=== PATIENT | female | born 1935 | race Caucasian/White ===

== ENCOUNTER 2016-06-07 19:01 | Emergency (ER) | payer MEDICARE ==
[2016-06-07 19:20] VITALS: BP 130/84; TEMP 101.3; O2SAT 95
[2016-06-07] MEDS ORDERED: OSELTAMIVIR 75 MG CAP PO ONE ×2 (20:12→21:29)
--- NOTE | 2016-06-07 20:34 | ED.PDOC ---
History of Present Illness - General Chief Complaint: Fever Stated Complaint: fever, cough congestion Time Seen by Provider: 06/07/16 20:27 Source: patient, RN notes reviewed, Vital Signs reviewed Exam Limitations: no limitations - History of Present Illness Initial Comments: Stated body aches since yesterday then fever this morning ststed that he had flu shot in March 2016;just finished levaquin yesterday for bronchitis Timing/Duration: 24 hours Severity: moderate Improving Factors: nothing Worsening Factors: nothing Associated Symptoms: cough Allergies/Adverse Reactions: Allergies Azithromycin Allergy (Severe, Verified 01/13/15 11:59) Hives Doxycycline Allergy (Severe, Verified 01/13/15 11:59) Hives Sulfa Antibiotics Allergy (Severe, Verified 01/13/15 11:59) Hives Home Medications: Ambulatory Orders ALPRAZolam [Xanax] 0.5 mg PO ACHS 01/13/15 Atorvastatin Calcium [Lipitor] 20 mg PO DAILY 01/13/15 Cetirizine HCl [Zyrtec Allergy] 10 mg PO DAILY 01/13/15 Gabapentin [Neurontin] 100 mg PO PRN PRN 01/13/15 Omeprazole [Prilosec] 10 mg PO DAILY 01/13/15 Sertraline HCl [Zoloft] 50 mg PO DAILY 01/13/15 diphenhydrAMINE HCL [Benadryl] 25 mg PO PRN PRN 01/13/15 predniSONE [Prednisone] 40 mg PO DAILY #10 tab 01/13/15 Acetaminophen W/ Codeine [Tylenol w/Codeine 300-30 mg] 1 tab PO TID PRN #14 tab 06/07/16 Dextromethorphan-Guaifenesin [Mucinex Dm 30-600 mg] 1 tab PO BID #30 tab Oseltamivir Phosphate [Tamiflu] 75 mg PO BID #10 cap 06/07/16 Review of Systems - Review of Systems Constitutional: States: fever EENTM: States: no symptoms reported Respiratory: States: cough - non productive Cardiology: States: no symptoms reported Gastrointestinal/Abdominal: States: no symptoms reported Genitourinary: States: no symptoms reported Musculoskeletal: States: no symptoms reported Skin: States: no symptoms reported Neurological: States: no symptoms reported Endocrine: States: no symptoms reported Hematologic/Lymphatic: States: no symptoms reported Past Medical History (General) - Patient Medical History Hx Asthma: No Hx Congestive Heart Failure: No Hx Hypertension: No Hx Gastroesophageal Reflux: Yes Hx Other - free text: hypercholesterolemia Surgical History: cholecystectomy, Hysterectomy Other Surgeries:: hysterectomy,both knees - Vaccination History Hx Tetanus, Diphtheria Vaccination: No Hx Influenza Vaccination: Yes Hx Pneumococcal Vaccination: Yes - Social History Hx Tobacco Use: No Family Medical History - Family History Mother Family History: No Known Hx Family Cancer: Yes - lung-dad Physical Exam - Physical Exam General Appearance: Alert, Comfortable, No apparent distress, Other - not acutely ill Eye Exam: bilateral normal Ears, Nose, Throat: hearing grossly normal, normal ENT inspection, normal pharynx Neck: non-tender, full range of motion, supple Respiratory: chest non-tender, lungs clear, normal breath sounds, no respiratory distress, no accessory muscle use Cardiovascular/Chest: regular rate, rhythm, no gallop, no murmur Gastrointestinal/Abdominal: normal bowel sounds, non tender, soft Back Exam: no CVA tenderness, no vertebral tenderness Extremity: normal range of motion, non-tender Neurologic: alert, normal mood/affect, oriented x 3 Skin Exam: normal color, warm/dry Progress - Progress Progress: 06/07/16 21:29 flu a positive Departure - Departure Clinical Impression: Influenza A Time of Disposition: 21:33 Disposition: Discharge to Home or Self Care Condition: Good Departure Forms: ED Discharge - Pt. Copy, Patient Portal Self Enrollment Instructions: Influenza Referrals: Moiz Negro MD [Primary Care Provider] - 1-2 Weeks Prescriptions: Dextromethorphan-Guaifenesin [Mucinex Dm 30-600 mg] 1 tab PO BID #30 tab Oseltamivir Phosphate [Tamiflu] 75 mg PO BID #10 cap Acetaminophen W/ Codeine [Tylenol w/Codeine 300-30 mg] 1 tab PO TID PRN #14 tab PRN Reason: Pain Home Medications: Ambulatory Orders ALPRAZolam [Xanax] 0.5 mg PO ACHS 01/13/15 Atorvastatin Calcium [Lipitor] 20 mg PO DAILY 01/13/15 Cetirizine HCl [Zyrtec Allergy] 10 mg PO DAILY 01/13/15 Gabapentin [Neurontin] 100 mg PO PRN PRN 01/13/15 Omeprazole [Prilosec] 10 mg PO DAILY 01/13/15 Sertraline HCl [Zoloft] 50 mg PO DAILY 01/13/15 diphenhydrAMINE HCL [Benadryl] 25 mg PO PRN PRN 01/13/15 predniSONE [Prednisone] 40 mg PO DAILY #10 tab 01/13/15 Acetaminophen W/ Codeine [Tylenol w/Codeine 300-30 mg] 1 tab PO TID PRN #14 tab 06/07/16 Dextromethorphan-Guaifenesin [Mucinex Dm 30-600 mg] 1 tab PO BID #30 tab Oseltamivir Phosphate [Tamiflu] 75 mg PO BID #10 cap 06/07/16 Additional Instructions: RETURN TO EMERGENCY ROOM NEEDED
[2016-06-07] MEDS ORDERED: HYDROcodone 5MG/APAP 325MG 1 EA TAB PO ONE (21:30)
== END 2016-06-07 22:00 | disposition home or self-care (01) ==
LOC: ER 19:01
DX: J10.1 Influenza due to other identified influenza virus with other respiratory manifestations (principal); Z88.2 Allergy status to sulfonamides; Z88.3 Allergy status to other anti-infective agents; Z79.899 Other long term (current) drug therapy; K21.9 Gastro-esophageal reflux disease without esophagitis; E78.00 Pure hypercholesterolemia, unspecified; Z80.1 Family history of malignant neoplasm of trachea, bronchus and lung

== ENCOUNTER → 2016-06-19 | Outpatient (CLI) | payer MEDICARE | END | disposition home or self-care (01) | LOC: GMAB 10:27 | PROVIDERS: ATTEND Family Medicine | DX: I10 Essential (primary) hypertension (principal) ==

== ENCOUNTER → 2016-08-27 | Outpatient (CLI) | payer MEDICARE | LOC: GMAB 17:36 | PROVIDERS: ATTEND Family Medicine | DX: R10.84 Generalized abdominal pain (principal) ==

== ENCOUNTER 2017-07-26 12:34 | Emergency (ER) | payer MEDICARE ==
[2017-07-26 12:52] VITALS: TEMP 97.6; O2SAT 95
--- NOTE | 2017-07-26 12:59 | ED.PDOC ---
History of Present Illness - General Chief Complaint: Trauma Stated Complaint: S/P Fall Time Seen by Provider: 07/26/17 12:55 Source: patient, family Exam Limitations: no limitations - History of Present Illness Initial Comments: Patient presents with neck pain, a right eye contusion, and right hand laceration after stumbling and falling off her back porch. She says that it was about 5 feet high. She denies LOC and says that she had no chest pain before she fell. She says she tripped over some items that were on the porch. Denies any N/V/paresthesias. No changes in vision or hearing. There is mild pain over the right maxilla and upper cervical vertebral spinous processes. She has pain on the right hand between the 1st and 2nd digits where there is a laceration. No hip pain. She also struck her knees but says that the just feel "sore" from the fall. No other complaints. Timing/Duration: 1/2 hour Severity: mild Improving Factors: nothing Worsening Factors: nothing Associated Symptoms: denies symptoms Allergies/Adverse Reactions: Allergies Azithromycin Allergy (Severe, Verified 01/13/15 11:59) Hives Doxycycline Allergy (Severe, Verified 01/13/15 11:59) Hives Sulfa Antibiotics Allergy (Severe, Verified 01/13/15 11:59) Hives Erythromycin Allergy (Verified 07/26/17 12:51) Tetracycline Allergy (Verified 07/26/17 12:51) Home Medications: Ambulatory Orders ALPRAZolam [Xanax] 0.5 mg PO ACHS 01/13/15 Atorvastatin Calcium [Lipitor] 20 mg PO DAILY 01/13/15 Cetirizine HCl [Zyrtec Allergy] 10 mg PO DAILY 01/13/15 Gabapentin [Neurontin] 100 mg PO PRN PRN 01/13/15 Omeprazole [Prilosec] 10 mg PO DAILY 01/13/15 Sertraline HCl [Zoloft] 50 mg PO DAILY 01/13/15 diphenhydrAMINE HCL [Benadryl] 25 mg PO PRN PRN 01/13/15 predniSONE [Prednisone] 40 mg PO DAILY #10 tab 01/13/15 Acetaminophen W/ Codeine [Tylenol w/Codeine 300-30 mg] 1 tab PO TID PRN #14 tab 06/07/16 Dextromethorphan-Guaifenesin [Mucinex Dm 30-600 mg] 1 tab PO BID #30 tab Oseltamivir Phosphate [Tamiflu] 75 mg PO BID #10 cap 06/07/16 Review of Systems - Review of Systems Constitutional: States: no symptoms reported EENTM: States: no symptoms reported Respiratory: States: no symptoms reported Cardiology: States: no symptoms reported Gastrointestinal/Abdominal: States: no symptoms reported Genitourinary: States: no symptoms reported Musculoskeletal: States: see HPI Skin: States: see HPI Neurological: States: no symptoms reported Endocrine: States: no symptoms reported Hematologic/Lymphatic: States: no symptoms reported Past Medical History (General) - Patient Medical History Hx Stroke: No Hx Asthma: No Hx Congestive Heart Failure: No Hx Hypertension: No Hx Diabetes: No Hx Gastroesophageal Reflux: Yes Surgical History: cholecystectomy, Hysterectomy - Vaccination History Hx Tetanus, Diphtheria Vaccination: No - UNKNOWN Hx Influenza Vaccination: Yes Hx Pneumococcal Vaccination: Yes - Social History Hx Tobacco Use: Yes - Female History Patient is a Female of Child Bearing Age (10 -59 yrs old): No Family Medical History - Family History Mother Family History: No Known Hx Family Cancer: Yes - lung-dad Physical Exam - Physical Exam General Appearance: Alert Eye Exam: bilateral normal Ears, Nose, Throat: normal ENT inspection Neck: non-tender, full range of motion, supple, tender midline - cervical spinous processes 4-7 are mildly TTP Respiratory: chest non-tender, lungs clear, normal breath sounds Cardiovascular/Chest: normal peripheral pulses, regular rate, rhythm, no edema Gastrointestinal/Abdominal: normal bowel sounds, non tender, soft Extremity: normal range of motion, non-tender, normal inspection, other - Right fingers 1-5 have 5/5 strength to flexion/extension/adduction/abduction. 5/5 strength to opposition and extension of the thumb. 5/5 strength to flexion/ extension of the right wrist. Full sensation throughout entire right hand and fingers. Capillary refill less than 2 second throughout entire right hand and nail beds. 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 small amount of bleeding. No extension into subcutanoous soft tissue, tendon, or muscle. Progress - Progress Progress: 07/26/17 14:09 CT head negative for hemorrhage. CT cervical spine negative for fractures. Laceration was prepped and draped in a sterile fashion. 4 cc lidocaine 1% without epinephrine was used to gain excellent local anesthesia. Wound was irrigated with 40 cc sterile NS. 9 interrupted sutures using 4-0 proline were placed to gain excellent wound edge approximation. Wound was cleaned, treated with topical antibiotic, and dressed. Area was clean, dry and hemostatic upon completion. Patient tolerate procedure well. Tetanus booster given. Care instructions given. Departure - Departure Clinical Impression: Laceration, Facial contusion, Neck sprain Disposition: Discharge to Home or Self Care Condition: Good Departure Forms: ED Discharge - Pt. Copy, Patient Portal Self Enrollment Instructions: DI for Trauma Diet: resume usual diet Activity: other - Restrict use of the right hand to writing only until sutures are removed. Referrals: Moiz Negro MD [Primary Care Provider] - 1-2 Weeks Home Medications: Ambulatory Orders ALPRAZolam [Xanax] 0.5 mg PO ACHS 01/13/15 Atorvastatin Calcium [Lipitor] 20 mg PO DAILY 01/13/15 Cetirizine HCl [Zyrtec Allergy] 10 mg PO DAILY 01/13/15 Gabapentin [Neurontin] 100 mg PO PRN PRN 01/13/15 Omeprazole [Prilosec] 10 mg PO DAILY 01/13/15 Sertraline HCl [Zoloft] 50 mg PO DAILY 01/13/15 diphenhydrAMINE HCL [Benadryl] 25 mg PO PRN PRN 01/13/15 predniSONE [Prednisone] 40 mg PO DAILY #10 tab 01/13/15 Acetaminophen W/ Codeine [Tylenol w/Codeine 300-30 mg] 1 tab PO TID PRN #14 tab 06/07/16 Dextromethorphan-Guaifenesin [Mucinex Dm 30-600 mg] 1 tab PO BID #30 tab Oseltamivir Phosphate [Tamiflu] 75 mg PO BID #10 cap 06/07/16 Additional Instructions: Keep wound clean. Apply topical antibiotic twice per day for the first three days. Restrict use of the right hand to writing only until sutures are removed. See your primary doctor in 10 days for suture removal. Return to the E.R. for increasing pain, redness, bleeding, pus or fever.
--- NOTE | 2017-07-26 13:25 | CT ---
EXAM DESCRIPTION: Cervical Spine CLINICAL HISTORY: 81 years Female, fall from 5 feet with neck pain COMPARISON: None. TECHNIQUE: Axial imaging. No IV contrast. Sagittal and coronal reconstruction FINDINGS: There is moderate multilevel spondylosis with facet arthrosis affecting all cervical segments. No fractures. No offset. There is normal facet alignment. Odontoid is noted to be intact. Is subtle vascular calcifications within the carotid arteries. IMPRESSION: Spondylosis. No fractures This exam was performed according to our departmental dose-optimization program, which includes automated exposure control, adjustment of the mA and/or kV according to patient size and/or use of iterative reconstruction technique. Electronically signed by: Jaiden Mcconnell 07/26/2017 1:24 PM CDT
--- NOTE | 2017-07-26 13:27 | CT ---
EXAM DESCRIPTION: Head CLINICAL HISTORY: 81 years Female, fall, patient on aspirin COMPARISON: None. TECHNIQUE: Axial imaging. No IV contrast. Sagittal and coronal reconstruction FINDINGS: Mild periventricular microangiopathic changes. No mass lesions are seen. There is no evidence of intracranial hemorrhage. Ventricular structures are nondilated. Vascular calcifications noted within the carotid siphons and right vertebral artery. IMPRESSION: Mild periventricular microangiopathic changes. No evidence of intracranial hemorrhage. Electronically signed by: Jaiden Mcconnell 07/26/2017 1:26 PM CDT
[2017-07-26] MEDS ORDERED: LIDOCAINE 1% 10 ML VIAL INJ ONE (13:33)
[2017-07-26] MEDS ORDERED: POVIDONE IODINE 10 % 15 ML UD TOP ONE (13:33)
[2017-07-26] MEDS ORDERED: TETANUS,DIPHTHERIA,PERTUSSIS 1 EA SYG IM ONE (13:33)
[2017-07-26] MEDS ORDERED: NEOMYCIN-BACITRACIN-POLYMYXIN 0.9 GM UD TOP ONE (14:11)
[2017-07-26 14:54] VITALS: BP 141/69
== END 2017-07-26 14:53 | disposition home or self-care (01) ==
LOC: ER 12:34
DX: S13.9XXA Sprain of joints and ligaments of unspecified parts of neck, initial encounter (principal); S00.11XA Contusion of right eyelid and periocular area, initial encounter; S61.411A Laceration without foreign body of right hand, initial encounter; Z23 Encounter for immunization; W17.89XA Other fall from one level to another, initial encounter; Y92.008 Other place in unspecified non-institutional (private) residence as the place of occurrence of the external cause

== ENCOUNTER → 2017-12-17 | Outpatient (CLI) | payer MEDICARE | LOC: GMAE 14:32 | PROVIDERS: ATTEND Family Medicine | DX: M79.1 Myalgia (principal) ==

== ENCOUNTER 2018-01-10 21:08 | Emergency (ER) | payer MEDICARE ==
[2018-01-10] MEDS ORDERED: SODIUM CHLORIDE 0.9% 500ML 500 ML IVS ONE (21:28)
[2018-01-10] MEDS ORDERED: ONDANSETRON INJ 4 MG/2 ML VIAL IV ONE (21:29)
--- NOTE | 2018-01-10 21:32 | ED.PDOC ---
History of Present Illness - General Chief Complaint: Trauma Stated Complaint: N/V, fell last night after drinking wine Time Seen by Provider: 01/10/18 21:16 Source: patient, family - daughter Exam Limitations: no limitations - History of Present Illness Initial Comments: Megan Sosa 82 y/o female stated that she had drank 3 glasses of wine last at a [place] with friends then went home last night as she was walking on her driveway lost her balance and fell to the ground landing on the back of her head.Denies LOC,remembers incident but this morning had generalized dull headache but mostly back of her head had episodes of vomiting as well as sharp abdominal pains since this am and unable to eat anything since nauseous. Timing/Duration: 24 hours Severity: moderate Improving Factors: nothing Worsening Factors: movement Associated Symptoms: other - see hpi Allergies/Adverse Reactions: Allergies Azithromycin Allergy (Severe, Verified 01/10/18 21:28) Hives Doxycycline Allergy (Severe, Verified 01/10/18 21:28) Hives Sulfa Antibiotics Allergy (Severe, Verified 01/10/18 21:28) Hives Erythromycin Allergy (Verified 01/10/18 21:28) Tetracycline Allergy (Verified 01/10/18 21:28) Home Medications: Ambulatory Orders ALPRAZolam [Xanax] 0.5 mg PO ACHS 01/13/15 Atorvastatin Calcium [Lipitor] 20 mg PO DAILY 01/13/15 Cetirizine HCl [Zyrtec Allergy] 10 mg PO DAILY 01/13/15 Gabapentin [Neurontin] 100 mg PO PRN PRN 01/13/15 Omeprazole [Prilosec] 10 mg PO DAILY 01/13/15 Sertraline HCl [Zoloft] 50 mg PO DAILY 01/13/15 diphenhydrAMINE HCL [Benadryl] 25 mg PO PRN PRN 01/13/15 predniSONE [Prednisone] 40 mg PO DAILY #10 tab 01/13/15 Acetaminophen W/ Codeine [Tylenol w/Codeine 300-30 mg] 1 tab PO TID PRN #14 tab 06/07/16 Dextromethorphan-Guaifenesin [Mucinex Dm 30-600 mg] 1 tab PO BID #30 tab Oseltamivir Phosphate [Tamiflu] 75 mg PO BID #10 cap 06/07/16 Review of Systems - Review of Systems Constitutional: States: no symptoms reported EENTM: States: no symptoms reported Respiratory: States: no symptoms reported Gastrointestinal/Abdominal: States: see HPI, abdominal pain, vomiting Genitourinary: States: no symptoms reported Musculoskeletal: States: no symptoms reported Skin: States: no symptoms reported Neurological: States: see HPI, headache Past Medical History (General) - Patient Medical History Hx Stroke: No Hx Asthma: No Hx Congestive Heart Failure: No Hx Hypertension: No Hx Diabetes: No Hx Gastroesophageal Reflux: Yes Surgical History: cholecystectomy, other - hysterectomy,both knees - Vaccination History Hx Tetanus, Diphtheria Vaccination: No - UNKNOWN Hx Influenza Vaccination: Yes Hx Pneumococcal Vaccination: Yes - Social History Hx Tobacco Use: Yes Hx Alcohol Use: No Hx Physical Abuse: No Hx Emotional Abuse: No - Activities of Daily Living Grooming Ability: Independent Eating (Feeding) Ability: Independent Toileting Ability: Independent Family Medical History - Family History Mother Family History: No Known Hx Family Cancer: Yes - lung-dad Physical Exam - Physical Exam General Appearance: Alert, No apparent distress Eye Exam: bilateral normal Ears, Nose, Throat: hearing grossly normal, normal ENT inspection Neck: full range of motion, normal inspection, limited range of motion - pain side of neck Respiratory: chest non-tender, lungs clear, normal breath sounds Cardiovascular/Chest: normal peripheral pulses, regular rate, rhythm, no murmur Peripheral Pulses: radial,right: 2+, radial,left: 2+ Gastrointestinal/Abdominal: normal bowel sounds, soft, tenderness - mid abdomen no peritoneal signs Extremity: no pedal edema, no calf tenderness Neurologic: no motor/sensory deficits, alert, oriented x 3, other - speech fluent;negative pronator drift Skin Exam: normal color, warm/dry Lymphatic: no adenopathy Progress - Progress Progress: 01/10/18 22:01 Vital Signs - 8 hr 01/10/18 21:15 Temperature 98.9 F Pulse Rate [ 70 monitor] Respiratory 18 Rate Blood Pressure 174/88 [Left Arm] O2 Sat by Pulse 95 Oximetry 01/10/18 23:36 D/W patient result of CT-head,neck abdomen-result no acute abnormal findings but explained that she had mild troponin elevation that she might be having heart attack and need to be transferred to a [facility] where they have record librarian and agreed with the plan. - Results/Orders Results/Orders: Vital Signs - 8 hr 01/10/18 01/10/18 01/10/18 21:15 22:08 22:30 Temperature 98.9 F Pulse Rate [ 70 71 76 monitor] Respiratory 18 16 14 Rate Blood Pressure 174/88 152/84 151/72 [Left Arm] O2 Sat by Pulse 95 95 95 Oximetry 01/10/18 22:50 Temperature Pulse Rate [ 70 monitor] Respiratory 16 Rate Blood Pressure 143/74 [Left Arm] O2 Sat by Pulse 96 Oximetry Laboratory Tests 01/10/18 01/10/18 21:25 21:28 WBC 9.2 RBC 4.72 Hgb 13.6 Hct 41.0 MCV 86.9 MCH 28.8 MCHC 33.2 RDW 14.2 Plt Count 260 MPV 8.4 Absolute Neuts (auto) 7.50 H Absolute Lymphs (auto) 1.10 Absolute Monos (auto) 0.60 Absolute Eos (auto) 0.00 Absolute Basos (auto) 0.00 Neutrophils % 81.6 H Lymphocytes % 11.5 L Monocytes % 6.4 Eosinophils % 0.1 L Basophils % 0.4 PT 10.7 INR 1.07 PTT (SP) 23.9 Sodium 142 Potassium 3.7 Chloride 103 Carbon Dioxide 27 Anion Gap 15.7 BUN 14 Creatinine 0.83 BUN/Creatinine Ratio 16.9 Random Glucose 148 H Serum Osmolality 286.3 Calcium 9.4 Magnesium 1.7 L Total Bilirubin 1.0 Direct Bilirubin 0.2 Indirect Bilirubin 0.8 AST 20 ALT 15 Alkaline Phosphatase 111 Creatine Kinase 55 CK-MB (CK-2) 3.7 CK-MB (CK-2) % Not Reportable Troponin I 0.17 H* Serum Total Protein 7.1 Albumin 4.2 Lipase 17 L Ethyl Alcohol < 5.40 - EKG/XRAY/CT EKG: nonspecific ST T wave Chg - anterior leads Comments: HR-71 CT Ordered: Yes - head,neck,abdomen-no acute findings Departure - Departure Clinical Impression: NSTEMI (non-ST elevation myocardial infarction) Fall Qualifiers: Encounter type: initial encounter Qualified Code(s): W19.XXXA - Unspecified fall, initial encounter Nausea & vomiting Qualifiers: Vomiting type: unspecified Vomiting Intractability: unspecified Qualified Code( s): R11.2 - Nausea with vomiting, unspecified Headache Qualifiers: Headache type: unspecified Headache chronicity pattern: unspecified pattern Intractability: not intractable Qualified Code(s): R51 - Headache Abdominal pain Qualifiers: Abdominal location: generalized Qualified Code(s): R10.84 - Generalized abdominal pain Time of Disposition: 23:35 Disposition: Transfer to Hospital Condition: Fair Departure Forms: Patient Portal Self Enrollment Referrals: ROBERTO LUNDBERG MD [Primary Care Provider] - 1-2 Weeks Home Medications: Ambulatory Orders ALPRAZolam [Xanax] 0.5 mg PO ACHS 01/13/15 Atorvastatin Calcium [Lipitor] 20 mg PO DAILY 01/13/15 Cetirizine HCl [Zyrtec Allergy] 10 mg PO DAILY 01/13/15 Gabapentin [Neurontin] 100 mg PO PRN PRN 01/13/15 Omeprazole [Prilosec] 10 mg PO DAILY 01/13/15 Sertraline HCl [Zoloft] 50 mg PO DAILY 01/13/15 diphenhydrAMINE HCL [Benadryl] 25 mg PO PRN PRN 01/13/15 predniSONE [Prednisone] 40 mg PO DAILY #10 tab 01/13/15 Acetaminophen W/ Codeine [Tylenol w/Codeine 300-30 mg] 1 tab PO TID PRN #14 tab 06/07/16 Dextromethorphan-Guaifenesin [Mucinex Dm 30-600 mg] 1 tab PO BID #30 tab Oseltamivir Phosphate [Tamiflu] 75 mg PO BID #10 cap 06/07/16 Transfer to Outside Facility - Transfer Information Accepting Provider:: -Hospitalist Accepting Facility: [facility] Reason for Transfer: required specialist not available - record librarian
[2018-01-10] MEDS ORDERED: MAGNESIUM SULFATE PREMIX 2GM 2 GM in PREMIX BAG 1 BAG IVPB ONE (22:02)
[2018-01-10] MEDS ORDERED: MAGNESIUM SULFATE PREMIX 2GM 50 ML IVPB ONE (22:15)
--- NOTE | 2018-01-10 22:32 | CT ---
EXAM DESCRIPTION: Abdoment/Pelvis w/o Contrast CLINICAL HISTORY: 82 years Female fall headache/vomiting COMPARISON: None. TECHNIQUE: Contiguous axial images obtained through the abdomen and pelvis without IV contrast. Reformatted images obtained. This exam was performed according to our department optimization program which includes automated exposure control, adjustment of the mA and/or kv according to patient size and/or use of iterative reconstruction technique. FINDINGS: The lung bases are clear. The liver appears unremarkable. The spleen and pancreas appear unremarkable. No adrenal masses. The kidneys appear unremarkable. No hydronephrosis or definite ureteral calculi. The gallbladder is surgically absent. No aneurysmal dilatation of the aorta. No bowel obstruction. No free pelvic fluid. IMPRESSION: No evidence of acute process Absent gallbladder Electronically signed by: Miriam Rucker MD 01/10/2018 10:31 PM CDT
--- NOTE | 2018-01-10 22:35 | CT ---
EXAM DESCRIPTION: CT head without contrast CLINICAL HISTORY: fall headache/vomiting COMPARISON: July 26, 2017 Technique: Contiguous axial images of the brain were obtained without the administration of intravenous contrast. Multiplanar reformats was obtained and reviewed. This exam was performed according to our departmental dose-optimization program which includes use of Automated Exposure Control, adjustment of the mA and/or kV according to patient size and/or use of iterative reconstruction technique. Findings: Brain: Mild cerebral atrophy. Periventricular and deep white matter hypodensities, most commonly due to nonspecific white matter chronic microvascular ischemia.No hemorrhage. No territorial infarct. No mass effect. No herniation. Ventricles: Within normal limits for patient's age. Bones: No acute osseous abnormality. Paranasal sinuses: Unremarkable. Mastoid air cells: Unremarkable. Soft tissues: No acute abnormality. IMPRESSION: No acute intracranial abnormalities. Unchanged chronic findings. See below for CT spine report EXAM DESCRIPTION: CT spine without contrast CLINICAL HISTORY: 82 years Female fall headache/vomiting COMPARISON: July 26, 2017 TECHNIQUE: Multiplanar imaging through the cervical spine without contrast. This exam was performed according to our departmental dose-optimization program, which includes automated exposure control, adjustment of the mA and/or kV according to patient size and/or use of iterative reconstruction technique. FINDINGS: No fracture. No subluxation. Local mild disc and loss of the lesion. Abnormality. Soft tissues are unremarkable. Visualized lung is clear. IMPRESSION: No acute abnormality. No fracture or subluxation. [id number] degenerative changes. See above for CT head report. Electronically signed by: Martin Lee MD 01/10/2018 10:34 PM CDT
[2018-01-10] MEDS ORDERED: ASPIRIN (CHEWABLE) 81 MG TAB PO ONE (23:27)
[2018-01-10] MEDS ORDERED: ALPRAZolam 0.25 MG TAB PO ONE (23:35)
[2018-01-10] MEDS ORDERED: ENOXAPARIN SODIUM 100 MG/ML SYG SUBCU ONE (23:43)
[2018-01-10 23:44] VITALS: BP 155/75; TEMP 99.7; O2SAT 94
== END 2018-01-11 00:10 | disposition short-term general hospital (02) ==
LOC: ER 21:08
DX: I21.4 Non-ST elevation (NSTEMI) myocardial infarction (principal); R51 Headache; R11.2 Nausea with vomiting, unspecified; R10.84 Generalized abdominal pain; M47.812 Spondylosis without myelopathy or radiculopathy, cervical region; G31.9 Degenerative disease of nervous system, unspecified; K21.9 Gastro-esophageal reflux disease without esophagitis; Z90.49 Acquired absence of other specified parts of digestive tract; Z87.891 Personal history of nicotine dependence; Z79.899 Other long term (current) drug therapy; Z88.1 Allergy status to other antibiotic agents; Z88.2 Allergy status to sulfonamides; Z88.3 Allergy status to other anti-infective agents; W18.39XA Other fall on same level, initial encounter; Y93.01 Activity, walking, marching and hiking; Y92.008 Other place in unspecified non-institutional (private) residence as the place of occurrence of the external cause
CPT/HCPCS: 36415; 70450; 72125; 74176; 80048; 80076; 80320; 82550; 82553; 83690; 84484; 85025; 85610; 85730; 93005; J1650; J2405; J3475; J7040

== ENCOUNTER → 2018-01-21 | Outpatient (CLI) | payer MEDICARE | LOC: GMATM 16:51 | PROVIDERS: ATTEND Nurse Practitioner Family | DX: E53.8 Deficiency of other specified B group vitamins (principal); E55.9 Vitamin D deficiency, unspecified ==

== ENCOUNTER → 2018-02-03 | Outpatient (CLI) | payer MEDICARE ==
--- NOTE | 2018-02-04 20:36 | MAM ---
EXAM DESCRIPTION: 3D Screening BILATERAL : Digital Mammography. CLINICAL HISTORY: 82 years Female SCREEN . No complaints. No personal history or family history of breast cancer. Childbirth. Postmenopausal. Has taken HRT 5 or more years ago. Lifetime risk of developing breast cancer (Tyrer-Cuzick model)(%): 1.7. COMPARISON: 2-D digital screening bilateral study 12/12/2015. TECHNIQUE: Bilateral CC and MLO projection full-field images, Digital tomosynthesis mammographic technique. Bilateral digital 2-D full-field MLO images. CAD not utilized. FINDINGS: The breast parenchymal density pattern is: Scattered areas of fibroglandular density. No skin thickening or nipple retraction. Bilateral solitary microcalcifications. Skin mole inferior right breast. Bilateral secretory calcifications. Left axillary lymph node. Group of calcifications in the middle third of the medial right breast stable since the prior study. These are probably skin calcifications. Degenerating fibroadenoma upper posterior right breast. No new focal, stellate mass or density, focal asymmetry , and no suspicious microcalcifications bilaterally. Stable mammograms compared to prior study. Taking into account, differences in mammographic technique. IMPRESSION: Benign exam. BIRAD CATEGORY: 2 BENIGN FINDINGS. RECOMMENDATIONS: FOLLOW UP: Routine digital bilateral screening, one year interval from January 2018. Written communication explaining the IMPRESSION and follow-up, will be mailed to the patient and referring health care provider. According to the [employer], yearly mammograms are recommended starting at age 40 and continuing as long as a woman is in good health. Any breast change noted on a breast self-exam should be reported promptly to the patient's healthcare provider. Breast MRI is recommended for women with an approximately 20-25% or greater lifetime risk of breast cancer, including women with a strong family history of breast or ovarian cancer and women who have been treated for Hodgkin's disease. A negative mammographic report should not delay tissue diagnosis in patients with significant clinical history or physical findings. Extremely dense breast tissue limits the sensitivity of digital mammography. Electronically signed by: Scott Membreno MD 02/04/2018 8:35 PM CDT
== END ==
LOC: MAMMO 10:33
PROVIDERS: ATTEND Obstetrics & Gynecology
DX: Z12.31 Encounter for screening mammogram for malignant neoplasm of breast (principal)

== ENCOUNTER 2018-03-15 16:40 | Emergency (ER) | payer MEDICARE ==
[2018-03-15 17:04] VITALS: TEMP 99.1
[2018-03-15] MEDS ORDERED: HYDROcodone 7.5MG/APAP 325MG 1 EA TAB PO ONE (18:14)
--- NOTE | 2018-03-15 18:20 | RAD ---
EXAM DESCRIPTION: Elbow,Right 2 Views CLINICAL HISTORY: 82 years ,Female fall with pain COMPARISON: None. TECHNIQUE: RIGHT elbow, Three view FINDINGS: There is a mildly impacted fracture of the radial head which extends to the articular surface. Anterior and posterior fat pad with joint effusion. IMPRESSION: Radial head fracture with joint effusion Electronically signed by: Miriam Rucker MD 03/15/2018 6:18 PM CDT
[2018-03-15 18:21] VITALS: O2SAT 95
--- NOTE | 2018-03-15 18:21 | RAD ---
EXAM DESCRIPTION: Wrist,Left 2 Views CLINICAL HISTORY: 82 years ,Female fall with pain COMPARISON: None. TECHNIQUE: LEFT wrist, two view FINDINGS: No acute fractures or dislocations are identified. No osseous destructive lesions. Chondrocalcinosis. Degenerative changes at the first carpometacarpal junction. Narrowing of the radiocarpal joint space. IMPRESSION: No acute fractures are identified. If symptoms persist, followup is recommended in 7-10 days. Electronically signed by: Miriam Rucker MD 03/15/2018 6:19 PM CDT
--- NOTE | 2018-03-15 18:22 | RAD ---
PROCEDURE: Wrist,Right 2 Views CLINICAL HISTORY: fall with pain INDICATION: Same as above COMPARISON: X-ray of the left wrist done concurrently. TECHNIQUE: Two Views of the right wrist were done. FINDINGS: There is no evidence of acute fractures or dislocation involving the bones of the right wrist. There is presence of small well-corticated fracture fragment adjacent to the distal right ulna. There is also presence of a well-corticated nondisplaced fracture at the base of the first carpometacarpal joint. These are most likely old findings. Degenerative changes seen at the level of the first carpometacarpal joint The soft tissues are radiographically unremarkable. There is no visualization of any radiopaque foreign bodies. If the wrist pain persists, repeat films can be done in 7-10 days interval to rule out currently radiographically occult fractures. Alternatively an MRI of the wrist can be obtained to rule out any occult fractures or bone marrow edema. IMPRESSION: There is no evidence of acute fractures or dislocation involving the bones of the right wrist. There is presence of small well-corticated fracture fragment adjacent to the distal right ulna. There is also presence of a well-corticated nondisplaced fracture at the base of the first carpometacarpal joint. These are most likely old findings. Electronically signed by: Shin Hagan MD 03/15/2018 6:21 PM CDT Workstation: [id number]
--- NOTE | 2018-03-15 18:22 | RAD ---
EXAM DESCRIPTION: Shoulder,Right 2 or More Views CLINICAL HISTORY: 82 years Female fall with pain COMPARISON: None. TECHNIQUE: RIGHT shoulder two view FINDINGS: No acute fractures or dislocations identified. No osseous destructive lesions. Acromioclavicular joint appears maintained. Mild degenerative change at the acromial clavicular joint. IMPRESSION: No acute fracture or dislocation identified. Electronically signed by: Miriam Rucker MD 03/15/2018 6:20 PM CDT
--- NOTE | 2018-03-15 18:41 | ED.PDOC ---
History of Present Illness - General Chief Complaint: Trauma Stated Complaint: fall, upper extremity injury Time Seen by Provider: 03/15/18 17:18 Source: patient Exam Limitations: no limitations - History of Present Illness Initial Comments: the patient is an 82-year-old female that was walking today when she tripped and fell. She landed more on the right side but did try to get herself with her left side as well. The patient is complaining of pain in the right wrist the right elbow and a little bit on the right shoulder as well as the left wrist. There is no gross deformity. Worst of the pain is in the right elbow. She does appear to be neurovascularly preserved. No lacerations. No other injuries. She has had multiple recent falls. Timing/Duration: momentarily Severity: moderate Improving Factors: immobilization Worsening Factors: movement Associated Symptoms: denies symptoms Allergies/Adverse Reactions: Allergies Azithromycin Allergy (Severe, Verified 01/10/18 21:28) Hives Doxycycline Allergy (Severe, Verified 01/10/18 21:28) Hives Sulfa Antibiotics Allergy (Severe, Verified 01/10/18 21:28) Hives Erythromycin Allergy (Verified 01/10/18 21:28) Tetracycline Allergy (Verified 01/10/18 21:28) Home Medications: Ambulatory Orders ALPRAZolam [Xanax] 0.5 mg PO ACHS 01/13/15 Atorvastatin Calcium [Lipitor] 20 mg PO DAILY 01/13/15 Cetirizine HCl [Zyrtec Allergy] 10 mg PO DAILY 01/13/15 Gabapentin [Neurontin] 100 mg PO PRN PRN 01/13/15 Omeprazole [Prilosec] 10 mg PO DAILY 01/13/15 Sertraline HCl [Zoloft] 50 mg PO DAILY 01/13/15 diphenhydrAMINE HCL [Benadryl] 25 mg PO PRN PRN 01/13/15 predniSONE [Prednisone] 40 mg PO DAILY #10 tab 01/13/15 Acetaminophen W/ Codeine [Tylenol w/Codeine 300-30 mg] 1 tab PO TID PRN #14 tab 06/07/16 Dextromethorphan-Guaifenesin [Mucinex Dm 30-600 mg] 1 tab PO BID #30 tab Oseltamivir Phosphate [Tamiflu] 75 mg PO BID #10 cap 06/07/16 Quyskqldldxjn-Ukae-Cglylinwlk [Fioricet] 1 ea PO Q8H PRN #21 tab 03/15/18 Review of Systems - Review of Systems Constitutional: States: no symptoms reported EENTM: States: no symptoms reported Respiratory: States: no symptoms reported Cardiology: States: no symptoms reported Gastrointestinal/Abdominal: States: no symptoms reported Genitourinary: States: no symptoms reported Musculoskeletal: States: see HPI Skin: States: no symptoms reported Neurological: States: no symptoms reported Endocrine: States: no symptoms reported All other Systems: No Change from Baseline Past Medical History (General) - Patient Medical History Hx Seizures: No Hx Stroke: No Hx Dementia: No Hx Asthma: No Hx of COPD: No Hx Cardiac Disorders: No Hx Congestive Heart Failure: No Hx Pacemaker: No Hx Hypertension: No Hx Thyroid Disease: No Hx Diabetes: No Hx Gastroesophageal Reflux: Yes Hx Renal Disease: No Hx of HIV: No Hx MRSA: No Surgical History: cholecystectomy, Hysterectomy - Vaccination History Hx Tetanus, Diphtheria Vaccination: No - UNKNOWN Hx Influenza Vaccination: Yes Hx Pneumococcal Vaccination: Yes - Social History Hx Tobacco Use: Yes Hx Alcohol Use: No Hx Physical Abuse: No Hx Emotional Abuse: No Family Medical History - Family History Mother Family History: No Known Hx Family Cancer: Yes - lung-dad Physical Exam - Physical Exam General Appearance: Alert, No apparent distress Eye Exam: bilateral normal Ears, Nose, Throat: hearing grossly normal, normal ENT inspection Neck: full range of motion, supple Respiratory: lungs clear, normal breath sounds, no respiratory distress, no accessory muscle use Cardiovascular/Chest: normal peripheral pulses, regular rate, rhythm, no edema Peripheral Pulses: radial,right: 2+, radial,left: 2+, dorsalis pedis,right: 2+, dorsalis pedis,left: 2+ Gastrointestinal/Abdominal: non tender, soft - obese Rectal Exam: deferred Back Exam: normal inspection, no CVA tenderness, no vertebral tenderness Extremity: no pedal edema, normal capillary refill, other - see history of present illness. 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 X-rays of the right wrist, left wrist, right shoulder showed no evidence of fracture or dislocation that are acute. X-ray of the right elbow shows a mildly impacted radial head fracture. The patient is neurovascularly reserved. The patient will be placed in a shoulder immobilizer. Fioricet will be written for as needed use. She is to follow-up with orthopedics later this week or early next week for repeat x-rays and evaluation to see if it will heal up well enough on its own or if further intervention will be required. ER warnings were given. Departure - Departure Clinical Impression: Radial head fracture, closed Qualifiers: Encounter type: initial encounter Fracture alignment: nondisplaced Laterality: right Qualified Code(s): S52.124A - Nondisplaced fracture of head of right radius, initial encounter for closed fracture Disposition: Discharge to Home or Self Care Condition: Fair Departure Forms: ED Discharge - Pt. Copy, Patient Portal Self Enrollment Diet: regular diet Activity: no pushing/pulling with affected limb Referrals: ROBERTO LUNDBERG MD [Primary Care Provider] - 1-2 Weeks Prescriptions: Smbahysiwfdzw-Umel-Bcpjzdwdcl [Fioricet] 1 ea PO Q8H PRN #21 tab PRN Reason: Pain Home Medications: Ambulatory Orders ALPRAZolam [Xanax] 0.5 mg PO ACHS 01/13/15 Atorvastatin Calcium [Lipitor] 20 mg PO DAILY 01/13/15 Cetirizine HCl [Zyrtec Allergy] 10 mg PO DAILY 01/13/15 Gabapentin [Neurontin] 100 mg PO PRN PRN 01/13/15 Omeprazole [Prilosec] 10 mg PO DAILY 01/13/15 Sertraline HCl [Zoloft] 50 mg PO DAILY 01/13/15 diphenhydrAMINE HCL [Benadryl] 25 mg PO PRN PRN 01/13/15 predniSONE [Prednisone] 40 mg PO DAILY #10 tab 01/13/15 Acetaminophen W/ Codeine [Tylenol w/Codeine 300-30 mg] 1 tab PO TID PRN #14 tab 06/07/16 Dextromethorphan-Guaifenesin [Mucinex Dm 30-600 mg] 1 tab PO BID #30 tab Oseltamivir Phosphate [Tamiflu] 75 mg PO BID #10 cap 06/07/16 Bdwihwzlsgxsf-Bwee-Jntzbktiqr [Fioricet] 1 ea PO Q8H PRN #21 tab 03/15/18 Additional Instructions: the patient is an 82-year-old female presenting to emergency room after a fall. X-rays of the right wrist, left wrist, right shoulder showed no evidence of fracture or dislocation that are acute. X-ray of the right elbow shows a mildly impacted radial head fracture. The patient is neurovascularly reserved. The patient will be placed in a shoulder immobilizer. Fioricet will be written for as needed use. She is to follow-up with orthopedics later this week or early next week for repeat x-rays and evaluation to see if it will heal up well enough on its own or if further intervention will be required. ER warnings were given.
[2018-03-15 19:11] VITALS: BP 150/73
== END 2018-03-15 18:55 | disposition home or self-care (01) ==
LOC: ER 16:40
DX: S52.124A Nondisplaced fracture of head of right radius, initial encounter for closed fracture (principal); M25.511 Pain in right shoulder; M25.531 Pain in right wrist; K21.9 Gastro-esophageal reflux disease without esophagitis; Z79.899 Other long term (current) drug therapy; Z87.891 Personal history of nicotine dependence; Z88.3 Allergy status to other anti-infective agents; Z88.1 Allergy status to other antibiotic agents; Z88.2 Allergy status to sulfonamides; W01.0XXA Fall on same level from slipping, tripping and stumbling without subsequent striking against object, initial encounter; Y92.480 Sidewalk as the place of occurrence of the external cause

== ENCOUNTER → 2018-03-24 | Outpatient (CLI) | payer MEDICARE ==
--- NOTE | 2018-03-25 04:24 | US ---
Procedure: US THYROID Exam Date: 03/24/2018 Ordering Provider: JUDY LUNDBERG Clinical Indication: NODULE Comparison: None Technique: Real-time ultrasonography was obtained of the thyroid gland and phone representative images were recorded. Findings: The right lobe of the thyroid gland measures 4.2 x 1.8 x 1.8 cm . The left lobe of the thyroid gland measures 3.9 x 1.5 x 1.7 cm . The thyroid isthmus measures 0.4 cm. There are subcentimeter nodules in both lobes of the thyroid gland, none of which are amenable to FNA and no follow-up imaging is recommended. Impression: 1.There are subcentimeter nodules in both lobes of the thyroid gland, none of which are amenable to FNA and no follow-up imaging is recommended. ACR TI-RADS recommendations: TR5 (>/=7 points) - FNA if >/=1 cm, follow-up if 0.5 - 0.9 cm every year for 5 years TR4 (4-6 points) - FNA if >/=1.5 cm, follow-up if 1 - 1.4 cm in 1, 2, 3 and 5 years TR3 (3 points) - FNA if >/=2.5 cm, follow -up if 1.5 - 2.4 cm in 1, 3 and 5 years TR2 (2 points) and TR1 (0 points) - No FNA or follow-up * ACR TI-RADS recommends that no more than two nodules with the highest ACR TI-RADS total point should be biopsied and no more than four nodules should be followed. Electronically signed by: Murali Mejia MD 03/25/2018 4:23 AM [facility]
== END ==
LOC: US 13:49
PROVIDERS: ATTEND Family Medicine
DX: E04.1 Nontoxic single thyroid nodule (principal)

== ENCOUNTER → 2018-03-31 | Outpatient (CLI) | payer MEDICARE ==
--- NOTE | 2018-03-31 17:46 | RAD ---
EXAM DESCRIPTION: Elbow,Right 3 Views CLINICAL HISTORY: FRACTURE OF RADIAL HEAD RIGHT COMPARISON: 15 March 2018 TECHNIQUE: 3 views right FINDINGS: A slightly impacted radial neck fracture is observed. A small joint effusion is evident. The exam is otherwise unremarkable. IMPRESSION: An impacted radial neck fracture is demonstrated. No significant interval changes observed from the previous exam. Electronically signed by: Jericho Srivastava MD 03/31/2018 5:44 PM [facility]
--- NOTE | 2018-03-31 17:48 | RAD ---
EXAM DESCRIPTION: Wrist,Right 3 Views CLINICAL HISTORY: PAIN IN RIGHT WRIST COMPARISON: None. TECHNIQUE: 3 views bilateral FINDINGS: Examination of the right wrist reveals marked degenerative changes in the metacarpal carpal articulation of the first digit. An old avulsive injury of the ulnar styloid process is seen. 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 No fracturing is detected. Examination of the left wrist reveals mild radiocarpal arthritis. 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 There is some calcification of the triangular fibrocartilage. No acute injury is detected. 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
--- NOTE | 2018-04-05 10:15 | RAD ---
EXAM DESCRIPTION: Wrist,Right 3 Views CLINICAL HISTORY: PAIN IN RIGHT WRIST COMPARISON: None. TECHNIQUE: 3 views bilateral FINDINGS: Examination of the right wrist reveals marked degenerative changes in the metacarpal carpal articulation of the first digit. An old avulsive injury of the ulnar styloid process is seen. 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 No fracturing is detected. Examination of the left wrist reveals mild radiocarpal arthritis. 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 There is some calcification of the triangular fibrocartilage. No acute injury is detected. 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
== END ==
LOC: RAD 09:46
PROVIDERS: ATTEND Orthopaedic Surgery
DX: S52.124D Nondisplaced fracture of head of right radius, subsequent encounter for closed fracture with routine healing (principal); M25.532 Pain in left wrist; M12.831 Other specific arthropathies, not elsewhere classified, right wrist; M12.832 Other specific arthropathies, not elsewhere classified, left wrist

== ENCOUNTER → 2018-11-15 | Outpatient (CLI) | payer MEDICARE | LOC: GMAE 12:37 | PROVIDERS: ATTEND Family Medicine | DX: E53.8 Deficiency of other specified B group vitamins (principal); I10 Essential (primary) hypertension; E55.9 Vitamin D deficiency, unspecified ==

== ENCOUNTER → 2019-11-22 | Outpatient (CLI) | payer MEDICARE | LOC: GMAE 10:23 | PROVIDERS: ATTEND Family Medicine | DX: I10 Essential (primary) hypertension (principal); E78.2 Mixed hyperlipidemia ==